=== PATIENT | male | born 1965 | race Caucasian/White ===

== ENCOUNTER 2020-10-11 12:59 | Outpatient (CLI) | payer OTHER, SELFPAY ==
--- NOTE | 2020-10-11 07:45 | DI.RAD_ITS ---
Exam(s) XR KNEE RT 3V AP,LAT,MICHELE EXAM: XR KNEE RT 3V AP,LAT,MICHELE CLINICAL HISTORY: Rt knee pain, M25.561 TECHNIQUE: COMPARISON: No exams were available for comparison FINDINGS: Three views were obtained. There is an intramedullary hitesh in the femur. There is a moderate knee naomy int effusion seen lateral. There is a prominent superior patellar enthesophyte. There may be slight narrowing of medial tibiofemoral cartilaginous joint space. Otherwise the cartilaginous joint space s appear well maintained as visualized. IMPRESSION: Joint effusion and mild degenerative changes as described above. RADIATION DOSE DELIVERED: Total DLP
== END 2020-10-11 13:19 ==
PROVIDERS: PCP Family Medicine; Visit Provider Physician Assistant
DX: M17.11 Unilateral primary osteoarthritis, right knee (principal); M25.461 Effusion, right knee
CPT/HCPCS: 73562

== ENCOUNTER 2020-10-18 08:58 | Outpatient (CLI) | payer OTHER, SELFPAY ==
[2020-10-18 19:18] LABS: COVID-19 RT-PCR UVMMC Result Negative (Negative)
== END 2020-10-18 08:59 | disposition home or self-care (01) ==
LOC: LBO 08:58
PROVIDERS: PCP Family Medicine; Visit Provider Nurse Practitioner Family
DX: Z20.822 Contact with and (suspected) exposure to COVID-19 (principal)
CPT/HCPCS: U0003